=== PATIENT | female | born 1965 | race Caucasian/White ===

== ENCOUNTER 2017-07-31 09:47 | Emergency (ER) | payer OTHER ==
[~2017-07-31] VITALS: Ht 170.2 cm; Wt 74.8 kg
--- NOTE | ~2017-07-31 | EKG ---
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
[2017-07-31] MEDS ORDERED: NOHOMEMEDICATIONS (10:12)
[2017-07-31 10:17] LABS: ABSOLUTE NEUTROPHILS 6.3 thou/uL (1.4-8.2); BASOPHILS 0.9 % (0.0-2.0); EOSINOPHILS 6.7 % (0.0-3.0); HEMATOCRIT 45.6 % (37.0-47.0); HEMOGLOBIN 15.3 gm/dL (12.0-15.0); LYMPHOCYTES 15.7 % (24.0-44.0); MCH 30.7 pg (26.0-34.0); MCHC 33.5 g/dL (28.0-37.0); MCV 91.4 fL (80.0-100.0); MONOCYTES 8.5 % (1.0-8.0); PLATELET COUNT 357 thou/uL (150-400); POLYS 68.2 % (36.0-66.0); RBC 4.99 mil/uL (4.20-5.00); RDW 13.4 % (10.5-14.5); WBC 9.3 thou/uL (4.0-11.0)
[2017-07-31 10:19] LABS: MANUAL DIFF NO
[2017-07-31 10:24] LABS: ANION GAP 7 mmol/L (7-16); BUN 6 mg/dL (7-18); CALCIUM 9.5 mg/dL (8.5-10.1); CHLORIDE 102 mmol/L (98-107); CO2 29 mmol/L (21-32); CREATININE 0.7 mg/dL (0.6-1.0); GLUCOSE 126 mg/dL (74-106); SODIUM 138 mmol/L (136-145)
[2017-07-31 10:33] LABS: TROPONIN-I < 0.04 ng/mL (<0.06)
[2017-07-31 10:35] LABS: ABG SAMPLE TYPE ARTERIAL; BE(vivo) -1.6 mmol/L (-2 to +3); HCO3 21.5 mmol/L (22.0-26.0); LACTATE 1.28 mmol/L (0.5-2.0); O2(CT) 19.3 mL/dL (15.0-23.0); O2Hb 91.7 % (92.0-98.0); PCO2 32.3 mmHg (35.0-45.0); PO2 61.1 mmHg (80.0-100.0); pH 7.442 (7.360-7.450); sO2 92.6 % (92.0-98.0); tCO2 22.5 mmol/L (24.0-30.0)
[2017-07-31 10:36] LABS: STICK SITE R.RADIAL
[2017-07-31] MEDS ORDERED: PREDNISONE 20 M20 MG PO (11:53)
[2017-07-31] MEDS ORDERED: DOXYCYCLINE 10100 MG PO (11:53)
[2017-07-31] MEDS ORDERED: PROVENTIL HFA6.7 G1 INH (11:53)
[2017-07-31] MEDS ORDERED: ZPAK PO (12:04)
[2017-07-31 12:07] VITALS: BP 137/91
== END 2017-07-31 12:09 | disposition home or self-care (01) ==
LOC: ER 09:47
PROVIDERS: Physician Assistant
DX: J18.9 Pneumonia, unspecified organism (principal); F10.99 Alcohol use, unspecified with unspecified alcohol-induced disorder; Z87.891 Personal history of nicotine dependence